=== PATIENT | male | born 1965 | race Caucasian/White ===

== ENCOUNTER → 2023-01-01 | Outpatient (CLI) | payer BC ==
[~2023-01-01] MED LIST: LEXISCAN IV ONE
--- NOTE | 2023-01-01 23:31 | PCM.ECHO ---
APPROVED REPORT EXAM: Comprehensive 2D, Doppler, and color-flow Echocardiogram. Patient Location: OUT-PATIENT Indications Dyspnea Hypertension/HDD Chest Pain 2D Dimensions RVDd 3.00 cm (0.4-1.4cm/m2) LVOT Diameter 2.79 (1.8-2.4cm) LVEF(%) 33.88 (>50%) M-Mode Dimensions RVDd 2.55 (2.1-3.2cm) Left Atrium(MM) 4.45 (2.5-4.0cm) IVSd 1.05 (0.7-1.1cm) Aortic Root 3.35 (2.2-3.7cm) LVDd 6.80 (4.0-5.6cm) Aortic Cusp Exc 2.20 (1.5-2.0cm) PWd 1.00 (0.7-1.1cm) MV EPSS 1.38 (<0.5cm) IVSs 1.70 cm FS (%) 25.20 % LVDs 5.05 (2.0-3.8cm) ESV(Teich) 122.95 ml PWs 1.65 cm LVEF(%) 48.61 (>50%) Volumes Biplane 2D LV Volumes Biplane 2D LA Volumes LVEDv A4C 264.00 mL LA ESV Index LVESv A4C 174.56 mL Aortic Valve AoV Peak Ryan. 1.00 m/s AoV VTI 19.20 cm AO Peak GR. 4.10 mmHg AO Mean GR. 2.25 mmHg ANMOL (VMAX) 4.29 cm2 Mitral Valve MV E Velocity 1.05m/s MR Peak Gr. 53.95mmHg MV DECEL TIME 165.80ms MV A Velocity 1.15m/s TDI E/Lateral E' 0.80 E/Medial E' 0.50 Tricuspid Valve TR P. Velocity 1.40m/s RAP ESTIMATE 5.00mmHg TR Peak Gr. 8.08mmHg LEFT VENTRICLE Left ventricle is severely dilated. Left ventricular systolic function is moderately decreased. There is normal left ventricular wall thickness. There is global hypokinesis of the left ventricle. Stage 1 diastolic dysfunction is present (impaired relaxation pattern). There is no ventricular septal defect visualized. No left ventricle thrombus noted on this study. LVEF is 40%. RIGHT VENTRICLE Right ventricle is severely dilated. The right ventricular systolic function is normal. There is normal right ventricular wall thickness. ATRIA The left atrium size is normal. The right atrium size is normal. The interatrial septum is intact with no evidence for an atrial septal defect. AORTIC VALVE The aortic valve is normal in structure. There is no aortic valvular stenosis. No aortic regurgitation is present. There is no aortic valvular vegetation. MITRAL VALVE The mitral valve is normal in structure. There is no mitral valve stenosis. Moderate to severe mitral regurgitation There is no evidence of mitral valve vegetations. TRICUSPID VALVE The tricuspid valve is normal in structure. There is no tricuspid valve stenosis. Mild tricuspid regurgitation. There is no tricuspid valve vegetations. PULMONIC VALVE Pulmonic valve is not well visualized. There is no pulmonic valvular stenosis. There is no pulmonic valvular regurgitation. GREAT VESSELS The aortic root is normal in size. Pulmonary artery is not well visualized. Aortic arch is not well visualized. The IVC is normal in size and collapses >50% with inspiration. PERICARDIUM There is no pericardial effusion. There is no pleural effusion. Other Information Study Quality: Fair <Conclusion> Left ventricular systolic function is moderately decreased. LVEF is 40%. There is global hypokinesis of the left ventricle. Stage 1 diastolic dysfunction is present (impaired relaxation pattern). Left ventricle is severely dilated. Right ventricle is severely dilated. Moderate to severe mitral regurgitation Mild tricuspid regurgitation. Electronically signed by : PASQUALE WISDOM. 01/01/2023 23:31:09
--- NOTE | 2023-01-02 04:05 | STRESS ---
DATE OF SERVICE: 01/01/2023 DICTATOR NAME: PASQUALE WISDOM DO CARDIAC STRESS TEST INDICATION: Chest pain. FINDINGS: Baseline EKG shows normal sinus rhythm with intraventricular conduction delay. Stress EKG shows sinus tachycardia, unchanged from baseline. At the end of recovery, EKG shows normal sinus rhythm, unchanged from baseline. Baseline heart rate is 88 beats per minute and jessi to 101 beats per minute during stress. At the end of recovery, the heart rate is 94 beats per minute. Baseline blood pressure is 135/99 and remained the same during stress. At the end of recovery, the blood pressure is 141/96. Blood pressure and heart rate were appropriate for stress. There were no significant symptoms noted during stress. There were no arrhythmias noted during stress. EKG portion of stress test is nondiagnostic due to intraventricular conduction delay. Nuclear images were obtained with a rest dose of 11.6 mCi technetium-99 sestamibi, and a stress dose of 32.2 mCi technetium 99 sestamibi. Nuclear images reveal a large area of periinfarct ischemia involving the anterior wall as well as the septal wall. There is also a large area of fixed perfusion defect involving the apical wall suggestive of myocardial infarct. Left ventricular ejection fraction is 28%. EDV is 180 mL, ESV is 130 mL. The left ventricle is severely dilated. Gated motion images shows severe global hypokinesis of the left ventricle. TID 0.9. There is no evidence of diaphragmatic attenuation artifact. IMPRESSION: * There is a large area of periinfarct ischemia involving the anterior as well as the septal wall. * There is a large area of fixed perfusion defect involving the apical wall suggestive of myocardial infarction. * The left ventricle is severely dilated. * Severe global hypokinesis of the left ventricle is noted. * Severe cardiomyopathy with a left ventricular ejection fraction of 28% is noted. * This is an abnormal study. Recommend left heart catheterization. Mari ABBOTT D.O. DR: NIECY TID: [id number] RECEIPT: [id number] MTDD
== END | disposition home or self-care (01) ==
LOC: RAD 09:41
PROVIDERS: ATTEND Internal Medicine Interventional Cardiology
DX: I08.1 Rheumatic disorders of both mitral and tricuspid valves (principal); I10 Essential (primary) hypertension; I42.9 Cardiomyopathy, unspecified; R07.9 Chest pain, unspecified; R00.2 Palpitations; R06.02 Shortness of breath
CPT/HCPCS: 78452; 93306; 93017; A9500